=== PATIENT | female | born 1965 | race American Indian/Alaskan Native ===

== ENCOUNTER 2019-04-20 18:59 | Emergency (ER) | payer OTHER ==
--- NOTE | 2019-04-20 20:00 | Event Note ---
ED Screening Note Date of service: 04/20/19 Time: 19:57 ED Screening Note: 53 y o female was sent here by Dr Bruno for abdominal pain pt scheduled for surgery on friday This initial assessment/diagnostic orders/clinical plan/treatment(s) is/are subject to change based on patients health status, clinical progression and re- assessment by fellow clinical providers in the ED. Further treatment and workup at subsequent clinical providers discretion. Patient/guardian urged not to elope from the ED as their condition may be serious if not clinically assessed and managed. Initial orders include: labs main side eval
[2019-04-20 20:33] LABS: Basophils % (Auto) 0.7 % (0.0-1.8); Hematocrit 41.1 % (30.3-42.9); Hemoglobin 13.2 gm/dl (10.1-14.3); Lymphocytes # (Auto) 3.2 K/mm3 (1.2-5.4); Mean Corpuscular HGB Conc 32 % (30-34); Mean Corpuscular Volume 79 fl (79-97); Platelet Count 405 K/mm3 (140-440); Red Blood Count 5.23 M/mm3 (3.65-5.03); Red Cell Distribution Width 15.5 % (13.2-15.2)
[2019-04-20 20:34] LABS: Basophils # (Auto) 0.1 K/mm3 (0.0-0.1); Eosinophils # (Auto) 0.2 K/mm3 (0.0-0.4); Eosinophils % (Auto) 2.8 % (0.0-4.3); Monocytes # (Auto) 0.3 K/mm3 (0.0-0.8); Monocytes % (Auto) 4.3 % (0.0-7.3)
[2019-04-20 20:47] LABS: Alanine Aminotransferase 20 units/L (7-56); BUN/Creatinine Ratio 10; Blood Urea Nitrogen 9 mg/dL (7-17); Calcium 9.2 mg/dL (8.4-10.2); Hemolysis Index 11
[2019-04-20] MEDS ORDERED: MORPHINE 4 MG/1 ML INJ IV ONE (23:29)
[2019-04-20] MEDS ORDERED: ONDANSETRON 4 MG/2 ML INJ IV ONE (23:29)
[2019-04-21 01:30] LABS: Bacteria,Urine 2+ /HPF (Negative); Bilirubin,Urine NEG (Negative); Blood,Urine NEG (Negative); Color,Urine Yellow (Yellow); Mucus,Urine FEW /HPF; Protein,Urine <15 mg/dL mg/dL (Negative); Urobilinogen,Urine < 2.0 mg/dL (<2.0)
--- NOTE | 2019-04-21 02:28 | Cat Scan Report ---
CT ABDOMEN AND PELVIS WITH CONTRAST INDICATION / CLINICAL INFORMATION: ABDOMINAL PAIN. Patient complains of Mid-Abdomen and Mid-RIGHT Abdominal pain x 2 weeks with nausea a nd vomiting. TECHNIQUE: Axial CT images were obtained through the abdomen and pelvis after 100 mL Omnipaque [address] scans at this location are performed using CT dose reduction for ALARA by means of automated exposure control. COMPARISON: None available. FINDINGS: LOWER CHEST: No significant abnormality. LIVER: Liver is enlarged and hypodense characteristic of fatty infiltration. GALLBLADDER: Surgically absent. BILE DUCTS: No significant abnormality. PANCREAS: No significant abnormality. SPLEEN: No significant abnormality. ADRENALS: No significant abnormality. RIGHT KIDNEY and URETER: No significant abnormality. LEFT KIDNEY and URETER: No significant abnormality. STOMACH and SMALL BOWEL: Gastric lap band is present in expected orientation. Small gastric remnant a lisa the lap band. Mild thickening of the distal esophagus which may represent esophagitis. No small bowel abnormality. COLON: No significant abnormality. APPENDIX: No significant abnormality. PERITONEUM: No free fluid. No free air. No fluid collection. LYMPH NODES: No significant adenopathy. AORTA and ARTERIES: No significant abnormality. IVC and VEINS: Duplicated IVC. URINARY BLADDER: No significant abnormality. REPRODUCTIVE ORGANS: Uterus is absent. No significant adnexal abnormality. ADDITIONAL FINDINGS: None. SKELETAL SYSTEM: No significant abnormality. IMPRESSION: 1. No inflammatory process or bowel obstruction. 2. Small gastric remnant above the gastric lap band with mild thickening of the distal esophagus whic h could represent esophagitis. 3. Hepatomegaly with hepatic steatosis. Signer Name: Silke Shanks MD Signed: 04/21/2019 2:23 AM Workstation Name: [id number]
--- NOTE | 2019-04-21 03:14 | Emergency Department Report ---
ED Abdominal Pain HPI - General Chief Complaint: Abdominal Pain Stated Complaint: ABD/BACK PAIN Time Seen by Provider: 04/20/19 19:54 Source: patient Mode of arrival: Ambulatory Limitations: No Limitations - History of Present Illness Initial Comments: The patient is a 53-year-old -[place] African female who is morbidly obese and who has a history of gph-lcmxddb-tvbmlstgh diabetes, hypertension and hyperlipidemia who presents to the ED with complaint of acute onset persistent diffuse abdominal pain that radiates from the periumbilical to epigastric area for the last 2 weeks intermittently, and which got worse in the last 2 days with increased frequency. Patient states that she was extensively worked up at another hospital about a week ago and diagnosed with umbilical hernia and thereafter she followed up with her general surgeon Dr. Bruno who had scheduled a follow-up visit to his clinic for a possible umbilical hernia surgery in 3 days' time. Patient states that the last 2 days the periumbilical pain has worsened and she contacted a general surgeon's office Dr. Bruno who advised her to come to the ED for evaluation and possible admission for an emergent surgery to correct her hernia. Patient denies chest pain, shortness of breath, fever, chills, dysuria, urinary frequency and urgency, diarrhea, dizziness, back pain, hematuria or vaginal bleeding. Patient states that she has been taking Tylenol No. 3 tablets that were recently prescribed at the other hospital. MD Complaint: abdominal pain, other (nausea) -: Gradual, week(s) (2) Location: periumbilical, epigastric Radiation: epigastric Migration to: no migration Severity: severe Severity scale (0 -10): 7 Quality: cramping, aching Consistency: constant Improves With: nothing Worsens With: nothing Associated Symptoms: denies other symptoms, nausea. denies: vomiting, diarrhea, chills, constipation, dysuria, hematemesis, melena, anorexia, syncope Treatments Prior to Arrival: prescription analgesics - Related Data Home Medications Medication Instructions Recorded Confirmed Last Taken ALBUTEROL Inhaler (OR & NICU) 2 puff IH PRN PRN 05/15/15 05/15/15 Unknown [ProAir HFA Inhaler] Citalopram [celeXA] 10 mg PO QDAY 05/15/15 05/15/15 Unknown Lisinopril 40 mg PO QDAY 05/15/15 05/15/15 Unknown Metformin HCl [Metformin] 1,000 mg PO BID 05/15/15 05/15/15 Unknown Temazepam 30 mg PO HS 05/15/15 05/15/15 Unknown glipiZIDE XL [Glucotrol Xl] 5 mg PO QDAY 05/15/15 05/15/15 Unknown Previous Rx's Medication Instructions Recorded Last Taken Type Dicyclomine [Bentyl] 20 mg PO Q6H PRN #20 tablet 04/21/19 Unknown Rx Ondansetron [Zofran Odt] 4 mg PO Q6HR PRN #20 tab.rapdis 04/21/19 Unknown Rx Sucralfate [Carafate] 1 gm PO Q6HR #30 tablet 04/21/19 Unknown Rx raNITIdine HCl [Zantac] 150 mg PO Q12H #20 tablet 04/21/19 Unknown Rx Allergies Allergy/AdvReac Type Severity Reaction Status Date / Time No Known Allergies Allergy Unverified 05/15/15 13:09 ED Review of Systems ROS: Stated complaint: ABD/BACK PAIN Other details as noted in HPI Comment: All other systems reviewed and negative Constitutional: denies: chills, fever Eyes: denies: eye pain, eye discharge, vision change ENT: denies: ear pain, throat pain Respiratory: denies: cough, shortness of breath, wheezing Cardiovascular: denies: chest pain, palpitations, edema, syncope, paroxysmal nocturnal dyspnea Endocrine: no symptoms reported Gastrointestinal: abdominal pain, nausea. denies: vomiting, diarrhea, constipation, hematemesis Genitourinary: denies: urgency, dysuria, frequency, hematuria, discharge Musculoskeletal: denies: back pain, joint swelling, arthralgia Skin: denies: rash, lesions Neurological: denies: headache, weakness, paresthesias Psychiatric: denies: anxiety, depression Hematological/Lymphatic: denies: easy bleeding, easy bruising ED Past Medical Hx - Past Medical History Previous Medical History?: Yes Hx Hypertension: Yes (3YRS) Hx Diabetes: Yes (7-8 YRS AGO) Hx GERD: Yes (6 MONTHS) Hx Asthma: Yes ( A CHILD) - Surgical History Past Surgical History?: Yes Hx Cholecystectomy: Yes (2002) Hx Breast Surgery: Yes (BILATERAL BREAST REDUCTION 2000) Additional Surgical History: hysterectomy. sammy lambert - Social History Smoking Status: Never Smoker Substance Use Type: Alcohol - Medications Home Medications: Home Medications Medication Instructions Recorded Confirmed Last Taken Type ALBUTEROL Inhaler (OR & NICU) 2 puff IH PRN PRN 05/15/15 05/15/15 Unknown History [ProAir HFA Inhaler] Citalopram [celeXA] 10 mg PO QDAY 05/15/15 05/15/15 Unknown History Lisinopril 40 mg PO QDAY 05/15/15 05/15/15 Unknown History Metformin HCl [Metformin] 1,000 mg PO BID 05/15/15 05/15/15 Unknown History Temazepam 30 mg PO HS 05/15/15 05/15/15 Unknown History glipiZIDE XL [Glucotrol Xl] 5 mg PO QDAY 05/15/15 05/15/15 Unknown History Dicyclomine [Bentyl] 20 mg PO Q6H PRN #20 tablet 04/21/19 Unknown Rx Ondansetron [Zofran Odt] 4 mg PO Q6HR PRN #20 tab.rapdis 04/21/19 Unknown Rx Sucralfate [Carafate] 1 gm PO Q6HR #30 tablet 04/21/19 Unknown Rx raNITIdine HCl [Zantac] 150 mg PO Q12H #20 tablet 04/21/19 Unknown Rx ED Physical Exam - General Limitations: No Limitations General appearance: alert, in no apparent distress - Head Head exam: Present: atraumatic, normocephalic, normal inspection - Eye Eye exam: Present: normal appearance, PERRL, EOMI - ENT ENT exam: Present: normal exam, normal orophraynx, mucous membranes moist, TM's normal bilaterally, normal external ear exam - Neck Neck exam: Present: normal inspection, full ROM. Absent: tenderness, meningismus, lymphadenopathy, thyromegaly - Respiratory Respiratory exam: Present: normal lung sounds bilaterally. Absent: respiratory distress, wheezes, rales, stridor, chest wall tenderness, accessory muscle use, prolonged expiratory - Cardiovascular Cardiovascular Exam: Present: regular rate, normal rhythm, normal heart sounds. Absent: systolic murmur, diastolic murmur, rubs, gallop - GI/Abdominal GI/Abdominal exam: Present: soft, tenderness (epigastric and periumbilical tenderness), normal bowel sounds. Absent: distended, guarding, rebound, hyperactive bowel sounds, hypoactive bowel sounds - Rectal Rectal exam: Present: deferred - Extremities Exam Extremities exam: Present: normal inspection, full ROM, normal capillary refill - Back Exam Back exam: Present: normal inspection, full ROM. Absent: tenderness, CVA tenderness (R), CVA tenderness (L), muscle spasm, paraspinal tenderness - Neurological Exam Neurological exam: Present: alert, oriented X3, CN II-XII intact, normal gait, reflexes normal - Psychiatric Psychiatric exam: Present: normal affect, normal mood - Skin Skin exam: Present: warm, dry, intact, normal color. Absent: rash ED Course Vital Signs 04/20/19 04/20/19 04/20/19 19:53 22:45 23:00 Temperature 98.3 F 98.2 F Pulse Rate 77 67 75 Respiratory 14 18 15 Rate Blood Pressure 173/89 148/84 Blood Pressure 148/84 [Left] O2 Sat by Pulse 98 99 96 Oximetry 04/20/19 04/20/19 04/20/19 23:16 23:30 23:46 Temperature Pulse Rate 69 66 64 Respiratory 17 15 11 L Rate Blood Pressure 148/84 148/84 148/84 Blood Pressure [Left] O2 Sat by Pulse 99 100 98 Oximetry 04/21/19 04/21/19 04/21/19 00:00 00:06 00:16 Temperature Pulse Rate 63 64 Respiratory 12 18 19 Rate Blood Pressure 148/84 140/77 Blood Pressure [Left] O2 Sat by Pulse 99 100 Oximetry 04/21/19 04/21/19 04/21/19 00:30 00:36 00:45 Temperature Pulse Rate 60 60 Respiratory 13 18 13 Rate Blood Pressure 141/72 141/72 Blood Pressure [Left] O2 Sat by Pulse 99 99 Oximetry 04/21/19 04/21/19 01:09 01:15 Temperature Pulse Rate 66 61 Respiratory 18 18 Rate Blood Pressure 135/70 135/70 Blood Pressure [Left] O2 Sat by Pulse 99 99 Oximetry - Reevaluation(s) Reevaluation #1: 04/21/19 03:24 This is a 53-year-old -[place] female with a known history of umbilical hernia who presented to the ED with periumbilical abdominal pain that she did to the epigastric area persistently for the last 2 weeks with nausea. Patient had been treated for the same at another hospital and ended up following up with her general surgeon Dr. Bruno and was scheduled hernia surgery in 2 days' time. The patient herself stated that her abdominal pain got worse the last 2 days and was advised to come to the ED for evaluation by her general surgeon Dr. Bruno. In the ED, patient is alert and oriented 3 and is not in distress, vital signs are stable and the patient is in no acute distress. Lab test results were reviewed and are all nonactionable except for mildly elevated lipase levels. Urinalysis is unremarkable. Patient was treated for pain in the ED and on reevaluation, patient's pain is well-controlled with medication. Abdomen pelvis CT scan with contrast shows no inflammatory process or bowel o bstruction. There is however a small gastric remnant above the gastric lap band with mild thickening of the distal esophagus which could represent esophagitis. There is also hepatomegaly with hepatic steatosis. The patient was discharged home and advised to follow-up with Dr. Bruno her general surgeon as previously scheduled. Patient was also referred to the [facility]-for further evaluat ion of the esophagitis. Patient was therefore discharged home on pain medications and advised to follow-up as previously scheduled with her general surgeon Dr. Bruno. Patient was also advised to return to the ED immediately if symptoms get worse. ED Medical Decision Making - Lab Data Result diagrams: 04/20/19 20:10 04/20/19 20:10 - Radiology Data Radiology results: report reviewed, image reviewed Findings [facility] [address] [place] [address] Cat Scan Report Signed Patient: TUSHAR BACON MR#: [id number] : 1965 Acct:[id number] Age/Sex: 53 / F ADM Date: 04/20/19 Loc: ED Attending Dr: Ordering Physician: GALLO FERRIS Date of Service: 04/20/19 Procedure(s): CT abdomen pelvis w con Accession Number(s): [id number] cc: GALLO FERRIS CT ABDOMEN AND PELVIS WITH CONTRAST INDICATION / CLINICAL INFORMATION: ABDOMINAL PAIN. Patient complains of Mid-Abdomen and Mid-RIGHT Abdominal pain x 2 weeks with nausea and vomiting. TECHNIQUE: Axial CT images were obtained through the abdomen and pelvis after 100 mL Omnipaque [address] scans at this location are performed using CT dose reduction for ALARA by means of automated exposure control. COMPARISON: None available. FINDINGS: LOWER CHEST: No significant abnormality. LIVER: Liver is enlarged and hypodense characteristic of fatty infiltration. GALLBLADDER: Surgically absent. BILE DUCTS: No significant abnormality. PANCREAS: No significant abnormality. SPLEEN: No significant abnormality. ADRENALS: No significant abnormality. RIGHT KIDNEY and URETER: No significant abnormality. LEFT KIDNEY and URETER: No significant abnormality. STOMACH and SMALL BOWEL: Gastric lap band is present in expected orientation. Small gastric remnant above the lap band. Mild thickening of the distal esophagus which may represent esophagitis. No small bowel abnormality. COLON: No significant abnormality. APPENDIX: No significant abnormality. PERITONEUM: No free fluid. No free air. No fluid collection. LYMPH NODES: No significant adenopathy. AORTA and ARTERIES: No significant abnormality. IVC and VEINS: Duplicated IVC. URINARY BLADDER: No significant abnormality. REPRODUCTIVE ORGANS: Uterus is absent. No significant adnexal abnormality. ADDITIONAL FINDINGS: None. SKELETAL SYSTEM: No significant abnormality. IMPRESSION: 1. No inflammatory process or bowel obstruction. 2. Small gastric remnant above the gastric lap band with mild thickening of the distal esophagus which could represent esophagitis. 3. Hepatomegaly with hepatic steatosis. Signer Name: Silke Shanks MD Signed: 04/21/2019 2:23 AM Workstation Name: [id number] Transcribed By: DT Dictated By: Rick Shanks MD Electronically Authenticated By: Rick Shanks MD Signed Date/Time: 04/21/19222 DD/ 5 TD/TT: - Medical Decision Making This is a 53-year-old -[place] female with a known history of umbilical hernia who presented to the ED with periumbilical abdominal pain that she did to the epigastric area persistently for the last 2 weeks with nausea. Patient had been treated for the same at another hospital and ended up following up with her general surgeon Dr. Bruno and was scheduled hernia surgery in 2 days' time. The patient herself stated that her abdominal pain got worse the last 2 days and was advised to come to the ED for evaluation by her general surgeon Dr. Bruno. In the ED, patient is alert and oriented 3 and is not in distress, vital signs are stable and the patient is in no acute distress. Lab test results were reviewed and are all nonactionable except for mildly elevated lipase levels. Urinalysis is unremarkable. Patient was treated for pain in the ED and on reevaluation, patient's pain is well-controlled with medication. Abdomen pelvis CT scan with contrast shows no inflammatory process or bowel obs truction. There is however a small gastric remnant above the gastric lap band with mild thickening of the distal esophagus which could represent esophagitis. There is also hepatomegaly with hepatic steatosis. The patient was discharged home and advised to follow-up with Dr. Bruno her general surgeon as previously scheduled. Patient was also referred to the [facility]-for further evaluation of the esophagitis. Patient was therefore discharged home on pain medications and advised to follow-up as previously scheduled with her general surgeon Dr. Bruno. Patient was also advised to return to the ED immediately if symptoms get worse. - Differential Diagnosis abodminal pain; SBO; Umbilical hernia; GERD; Gastritis Critical care attestation.: If time is entered above; I have spent that time in minutes in the direct care of this critically ill patient, excluding procedure time. ED Disposition Clinical Impression: Acute esophagitis Abdominal pain Qualifiers: Abdominal location: epigastric Qualified Code(s): R10.13 - Epigastric pain Disposition: DC- TO HOME OR SELFCARE Is pt being admited?: No Does the pt Need Aspirin: No Condition: Stable Instructions: Abdominal Pain (ED), Diet for Ulcers and Gastritis (ED), Gastroesophageal Reflux Disease (ED) Additional Instructions: Take medications with food, drink plenty of fluids and follow-up with your general surgeon Dr. Solorzano 2-3 days for reevaluation. Consider following up with the GI physician as advised. Return to the ED immediately if symptoms get worse. Prescriptions: Dicyclomine [Bentyl] 20 mg PO Q6H PRN #20 tablet PRN Reason: Pain , Severe (7-10) Sucralfate [Carafate] 1 gm PO Q6HR #30 tablet raNITIdine HCl [Zantac] 150 mg PO Q12H #20 tablet Ondansetron [Zofran Odt] 4 mg PO Q6HR PRN #20 tab.rapdis PRN Reason: Nausea Referrals: ALEXANDER JOSE MD [Staff Physician] - 3-5 Days AGUSTÍN SOLORZANO MD [Staff Physician] - 3-5 Days Time of Disposition: 03:36 Print Language: TRISTANIAN
[2019-04-21] MEDS ORDERED: LIDOCAINE VISCOUS 2% 15 ML ORAL LIQD PO ONE (03:22)
[2019-04-21] MEDS ORDERED: ALUM-MAG HYDROXIDE-SIMETHICONE 200-200-20MG/5ML ORAL LIQD 30 ML PO ONE (03:22)
[2019-04-21] MEDS ORDERED: FAMOTIDINE 20 MG/2 ML INJ IV ONE (03:23)
[2019-04-21] MEDS ORDERED: ONDANSETRON 4 MG/2 ML INJ IV ONE (03:23)
[2019-04-21] MEDS ORDERED: MORPHINE 4 MG/1 ML INJ IV ONE (03:23)
[2019-04-21 03:49] VITALS: BP 131/71
== END 2019-04-21 03:55 | disposition home or self-care (01) ==
LOC: ED 18:59
DX: K20.9 Esophagitis, unspecified (principal); I10 Essential (primary) hypertension; E11.9 Type 2 diabetes mellitus without complications; E78.5 Hyperlipidemia, unspecified; K21.9 Gastro-esophageal reflux disease without esophagitis; J45.909 Unspecified asthma, uncomplicated; Z90.49 Acquired absence of other specified parts of digestive tract; Z79.899 Other long term (current) drug therapy; Z88.5 Allergy status to narcotic agent; Z90.710 Acquired absence of both cervix and uterus; Z98.890 Other specified postprocedural states
CPT/HCPCS: 36415; 74177; 80053; 81001; 83690; 84484; 85025; 93005; 93010; 96374; 96375; 96376; 99284; J2270; J2405; Q9967

== ENCOUNTER 2019-04-23 07:04 | Day surgery (SDC) | payer MEDICAID, OTHER ==
[~2019-04-23 07:04] MED LIST: ceFAZolin/Water 2 GM/20 ML 2 GM/20 ML SYRINGE IV SCH
--- NOTE | 2019-04-23 07:47 | Anesthesia Day of Surgery ---
Anesthesia Day of Surgery - Day of Surgery Patient Examined: Yes Patient H&P Reviewed: Yes Patient is NPO: Yes
--- NOTE | 2019-04-23 07:47 | Anesthesia Consultation ---
Anesthesia Consult and Med Hx Date of service: 04/23/19 - Airway Anesthetic Teeth Evaluation: Good ROM Head & Neck: Adequate Mental/Hyoid Distance: Adequate Mallampati Class: Class III Intubation Access Assessment: Possibly Difficult - Pre-Operative Health Status ASA Pre-Surgery Classification: ASA3 Proposed Anesthetic Plan: General - Pulmonary Hx Asthma: Yes ( A CHILD) - Cardiovascular System Hx Hypertension: Yes (2011) Hx Coronary Artery Disease: No (high cholesterol) - Central Nervous System Hx Psychiatric Problems: Yes - Endocrine Hx Insulin Dependent Diabetes: Yes (Last A1c-12.0) - Hematic Hx Anemia: Yes (PRIOR TO HYSTERECTOMY) - Other Systems Hx Alcohol Use: Yes Hx Substance Use: No Hx Cancer: No Hx Obesity: Yes (BMI 39.9)
[2019-04-23] MEDS ORDERED: FAMOTIDINE 20 MG/2 ML INJ IV NR (08:00)
[2019-04-23] MEDS ORDERED: SODIUM CHLORIDE 0.9% 1000 ML 1,000 ML IV SCH (08:00)
[2019-04-23] MEDS ORDERED: MIDAZOLAM 2 MG/2 ML INJ IV NR (08:00)
[2019-04-23] MEDS ORDERED: BUPIVACAINE-EPINEPHRINE/PF 0.5%-1:200,000 (30 ML) VIAL INFILTRATI ONE ×2 (08:03→10:00)
[2019-04-23] MEDS ORDERED: HYDROmorphone 1 MG/1 ML INJ ONE (08:50)
[2019-04-23] MEDS ORDERED: PROPOFOL 200 MG/20 ML VIAL IV ONE (08:50)
[2019-04-23] MEDS ORDERED: LIDOCAINE MPF (2%) 20 MG/1 ML VIAL 5 ML ONE (08:50)
[2019-04-23] MEDS ORDERED: ROCURONIUM 50 MG/5 ML INJ IV ONE (08:51)
[2019-04-23] MEDS ORDERED: NEOSTIGMINE 10MG/10 ML INJ MDV ONE (10:05)
[2019-04-23] MEDS ORDERED: GLYCOPYRROLATE 0.4 MG/2 ML INJ ONE (10:05)
--- NOTE | 2019-04-23 10:07 | Discharge Summary ---
Short Stay Discharge Plan Activity: other (observe x 4 hrs then november d/c if stable. ice chips today. cl liq in am then advance as titi) Diet: other Wound: keep clean and dry (x 5 days) Special Instructions: no heavy lifting (no lifting over 5 lbs x 1 wk) Additional Instructions: aleve I po q 6-8 hrs prn for breakthrough pain Follow up with: AGUSTÍN MARQUES MD [Staff Physician] - 7 Days
[2019-04-23] MEDS ORDERED: KETOROLAC 30 MG/1 ML INJ ONE (10:08)
[2019-04-23] MEDS ORDERED: ONDANSETRON 4 MG/2 ML INJ ONE ×2 (10:08→11:36)
--- NOTE | 2019-04-23 10:23 | Operative Report ---
PREOPERATIVE DIAGNOSIS: Persistent abdominal pain, rule out adhesions. POSTOPERATIVE DIAGNOSIS: Extensive thickened omental adhesions throughout the lower abdomen. PROCEDURE: 1. Diagnostic laparoscopy. 2. Lysis of extensive omental adhesions throughout the lower abdomen. SURGEON: Vivek Solorzano M.D. SHELLACKER: Dr. Saha. ANESTHESIA: General. ESTIMATED BLOOD LOSS: Minimal. DRAINS: None. COMPLICATIONS: None. DESCRIPTION OF PROCEDURE: The patient was taken to the operating room, prepped and draped in usual sterile fashion. Veress needle was inserted and CO2 insufflation begun. A 5 mm trocar was then inserted and camera inserted. Upon inspection of the abdomen, extensive and thickened omental adhesions were noted throughout the undersurface of the lower abdomen. Pictures of these were taken as well as pictures during the lysis and final pictures after all adhesions had been lysed. Two lateral 5 mm ports were then inserted. A Jackson was used to retract down the omental adhesions and Harmonic scalpel was used to slowly lyse and dissected all the adhesions. The area was carefully inspected for any iatrogenic injuries after completion of adhesion lysis, none were seen. All small bowel and the area was inspected and no evidence of any leakage or injuries noted. The area was also carefully inspected for any bleeding and none was seen. Again, post-adhesion lysis pictures were taken. The rest of the abdomen was inspected and no other gross pathology was noted. The lateral 5 mm ports were then removed under direct visualization. No bleeding or oozing seen. The final 5 mm port was used to expel the CO2 and the trocar removed. A 0.5% Marcaine was infiltrated over the port site for postoperative pain relief. All port sites were closed with subcuticular 4-0 Vicryl. Steri-Strips, 2 x 2, and Tegaderms applied. The patient tolerated the procedure well and left the OR in stable condition. JOB# [id number] HOLGER/YUDITH
[2019-04-23] MEDS: HYDROmorphone 1 MG/1 ML INJ IV PRN ×2 (10:55→11:05)
[2019-04-23] MEDS ORDERED: ONDANSETRON 4 MG/2 ML INJ IV ONE (11:36)
[2019-04-23] MEDS ORDERED: HYDROcodone/ACETAMINOPHEN 5-325 MG TAB PO PRN (12:00)
--- NOTE | 2019-04-23 14:23 | Post Anesthesia Evaluation ---
- Post Anesthesia Evaluation Patient Participated: Yes Airway Patent: Yes Stable Respiratory Function: Yes Nausea/Vomiting: No Temp > 96.8F: Yes Pain Manageable: Yes Adequeate Hydration: Yes Anesthesia Complications: No
[2019-04-23 16:54] VITALS: BP 138/80
== END 2019-04-23 14:05 | disposition home or self-care (01) ==
LOC: OR 07:04
PROVIDERS: ATTEND Surgery
DX: K66.0 Peritoneal adhesions (postprocedural) (postinfection) (principal); R10.9 Unspecified abdominal pain; E78.00 Pure hypercholesterolemia, unspecified; I10 Essential (primary) hypertension; J45.909 Unspecified asthma, uncomplicated; E66.9 Obesity, unspecified; F41.9 Anxiety disorder, unspecified; Z79.899 Other long term (current) drug therapy; Z88.8 Allergy status to other drugs, medicaments and biological substances; Z79.84 Long term (current) use of oral hypoglycemic drugs; Z90.49 Acquired absence of other specified parts of digestive tract; Z68.39 Body mass index [BMI] 39.0-39.9, adult; Z90.710 Acquired absence of both cervix and uterus; Z98.891 History of uterine scar from previous surgery; Z72.89 Other problems related to lifestyle; Z80.3 Family history of malignant neoplasm of breast; Z80.8 Family history of malignant neoplasm of other organs or systems; Z98.890 Other specified postprocedural states; Z86.2 Personal history of diseases of the blood and blood-forming organs and certain disorders involving the immune mechanism
CPT/HCPCS: 49329; 82962; J0690; J1170; J1885; J2250; J2405; J2704; J2710; J7030